=== PATIENT | male | born 1995 | race Caucasian/White ===

== ENCOUNTER 2018-01-28 16:17 | Emergency (ER) | payer OTHER ==
[~2018-01-28] VITALS: Ht 177.8 cm; Wt 92.2 kg
[2018-01-28 16:40] VITALS: BP 165/94; PULSE 93; TEMP 36.6; O2SAT 94; Ht 177.8 cm; Wt 92.2 kg
[2018-01-28] MEDS ORDERED: PENICILLIN V POTASSIUM 250 MG TAB PO STA (16:57)
--- NOTE | 2018-01-28 16:59 | EMERGENCY ROOM VISIT NOTE ---
ED Visit Note First contact with patient: 16:43 CHIEF COMPLAINT: Toothache HISTORY OF PRESENT ILLNESS: This 22-year-old male patient presented to the emergency department, ambulatory, with a progressive toothache for past 2 months. The patient believes it is coming from his upper and lower right sided wisdom teeth. The pain is now steady and severe and radiates to the face. The patient does not have a dentist appointment set up, because his friends told him he should be seen in the emergency department for antibiotics first. They rate their pain a 5/10 and the Tylenol they have been taking has not relieved the pain. Denies facial swelling or fever. He states last week, he did notice what seemed to be an abscess rupture while he was sleeping, and states he swallowed the purulent material which was expressed. The patient denies any more discharge from the mouth. REVIEW OF SYSTEMS: A 6 system review of systems was completed with positives and pertinent negatives listed in the HPI. ALLERGIES: None MEDICATIONS: None PMH: None SOCIAL HISTORY: The patient lives locally with family. He denies drug, alcohol use. He admits to smoking 1 pack of cigarettes per day. PHYSICAL EXAM: Vitals are noted on the nurse's note and reviewed by myself. Vital signs stable. Temperature 36.6C orally. GENERAL: This is a 22-year-old white male, in no acute distress, nondiaphoretic, well-developed well- nourished. Mouth: The #1 and #32 teeth are very carious and the gum is swollen and tender around it, without any discharge or signs of an abscess. The remainder of the pharynx and tonsils are without erythema, edema, or exudate. The airway is patent. There is no facial swelling, cervical or submandibular lymphadenopathy. The patient appears uncomfortable and in pain. The patient has overall poor dental hygiene. EARS: External auditory canals clear, tympanic membranes pearly renteria without erythema or effusion bilaterally. ED COURSE: The patient was seen and evaluated as above. There is no significant erythema, swelling, or palpable abscess at this time. Patient will be started on antibiotics with close follow-up by the dentist. He was given his first dose of Pen-Vee K while here in the emergency department at his request. Discharge instructions reviewed, the patient was discharged home in good condition. I attest that I have personally reviewed the patient's current medication list. Patient was found to have normal blood pressure on screening and does not require follow-up. Differential diagnosis includes odontalgia, dental abscess, facial cellulitis, Braden's Angina, sialadenitis, URI, acute sinusitis, malignancy, impacted teeth , and others DIAGNOSIS: Odontalgia Current/Historical Medications Scheduled Penicillin V Potassium (Veetids), 500 MG PO QID Allergies Coded Allergies: No Known Allergies (Verified , 01/28/18) Vital Signs Date Time Temp Pulse Resp B/P (MAP) Pulse Ox O2 Delivery O2 Flow Rate FiO2 01/28/18 16:40 36.6 93 18 165/94 94 Room Air Medications Administered Medications (Trade) Dose Ordered Sig/Mahnaz Route Start Time Stop Time Status Last Admin Dose Admin Penicillin V Potassium (Veetids Tab) 500 mg NOW STAT PO 01/28/18 16:57 01/28/18 16:58 DC 01/28/18 17:06 500 MG Departure Information Impression Primary Impression: Odontalgia Dispostion Home / Self-Care Condition GOOD Prescriptions Penicillin V Potassium (Veetids) 500 Mg Tab 500 MG PO QID for 10 Days, #40 TAB Prov: Ana Cristina Goldstein PA-C 01/28/18 Referrals Jumana Ordaz,C.R.N.PJorge Luis (PCP) Patient Instructions ED Abscess Dental, [facility] Additional Instructions You have been treated in the Emergency Department for Dental Pain. You were prescribed Pen-Vee K to be taken 4 times daily 10 days. This is an antibiotic. All antibiotics have the potential to cause diarrhea. Stop this medication and contact a medical provider if you were to develop any significant adverse side effects including: wheezing, shortness of breath, passing out, vomiting, or a diffuse rash. Always take antibiotics as directed and COMPLETE the ENTIRE course regardless of the improvement of your symptoms. For pain control, you can use the following [id number] medicines (if >12 yo): Ibuprofen(Motrin, Advil) may be used for fever or pain. Use 600mg every six hours as needed. Take with food. Avoid using more than 2400mg in a 24 hour period. Do not use 2400mg per day for more than three consecutive days without physician direction. Prolonged inappropriate use can lead to stomach upset or ulcers. (AND/OR) Acetaminophen(Tylenol) may be used for fever or pain. Use 1000mg every six hours as needed. Avoid using more than 3000mg in a 24 hour period. Refrain from smoking cigarettes or using chewing tobacco until you have been evaluated by your dentist. Keeping beverages lukewarm and consuming soft foods can decrease your pain. Warm compresses over the affected area may offer some relief. You MUST seek evaluation of your dental pain by a dentist following your visit to the Emergency Department. The Emergency Department is not capable of treating dental issues long-term. You should call your dentist as soon as possible to make an appointment for evaluation of your dental pain. Return to the emergency department if you develop the following symptoms despite treatment course outlined above: fever, intractable pain, increased redness, swelling, or purulent discharge.
[2018-01-28] MEDS ORDERED: PENI-82 PO (17:00)
== END 2018-01-28 17:11 | disposition home or self-care (01) ==
LOC: C.EDB 16:18 → C.EDD 17:11
DX: K08.89 Other specified disorders of teeth and supporting structures (principal); K02.9 Dental caries, unspecified; F17.200 Nicotine dependence, unspecified, uncomplicated